=== PATIENT | male | born 1965 | race Caucasian/White ===

== ENCOUNTER 2017-03-14 21:09 | Inpatient (IN) ==
--- NOTE | 2017-03-14 21:45 | Diag Imaging Result Doc PS360 ---
EXAM: CHEST-2 VIEWS HISTORY: dyspnea TECHNIQUE: PA and lateral COMMENT: There are opacities in the medial portion of the right upper lobe and the left lower lobe consistent with pneumonia. There are no previous studies available for comparison. The heart size is the upper limits of normal. There is probable COPD. IMPRESSION: COPD with bronchopneumonia as described. Advise follow-up until clear. Electronically signed by Keenan Gauthier 03/14/2017 9:42 PM
[2017-03-14] MEDS ORDERED: ROCEPHIN 1 GM/NS 1 GM/50 ML IVPB IV ONE (21:50)
[2017-03-14] MEDS ORDERED: DUONEB (A & A) INH ONE (21:57)
[2017-03-14] MEDS ORDERED: SOLU-MEDROL IV ONE (21:58)
[2017-03-14 22:00] LABS: MANUAL DIFF NEEDED? NO
[2017-03-14 22:02] LABS: BASO% 0.2 % (0.0-0.8); EOS# 0.15 X1000 (0.0-0.7); EOS% 1.1 % (0.0-10.0); HEMOGLOBIN 13.4 g/dL (14.0-18.0); IMM GRAN# 0.03 X1000 (0.0-0.04); IMM GRAN% 0.2 % (0.0-0.5); LYMPH% 12.1 % (20.5-51.1); MCHC 32.7 g/dL (33-37); MCV 104.1 FL (81-99); MONO# 1.57 X1000 (0.11-0.59); MONO% 11.9 % (1.7-9.3); NEUT% 74.5 % (42.2-75.2); PLT 366 X1000 (130-400); RBC 3.94 XMIL (4.7-6.1)
[2017-03-14 22:19] LABS: INR 0.98; PROTIME 10.3 Seconds (9.2-11.7); PTT 26.2 Seconds (22.0-36.0)
[2017-03-14 22:31] LABS: AGAP 13; ALBUMIN 3.8 g/dL (3.5-5.0); ALKALINE PHOSPHATASE 257 U/L (32-122); BUN 15 mg/dL (8-22); CALCIUM 9.1 mg/dL (8.8-10.2); CHLORIDE 98 mmol/L (98-107); CK PROFILE 53 U/L (24-204); COSMO 280; GOT 136 U/L (10-34); GPT 91 U/L (10-44); MAGNESIUM 1.7 mg/dL (1.5-2.7); POTASSIUM 4.8 mmol/L (3.5-5.1); SODIUM 139 mmol/L (136-145); TCO2 28 mmol/L (25-35); TOTAL BILIRUBIN 0.54 mg/dL (0.20-1.00); TOTAL PROTEIN 7.5 g/dL (6.3-8.3)
[2017-03-14] MEDS ORDERED: NS 500 ML IV ONE (22:45)
[2017-03-14] MEDS ORDERED: NS 1,000 ML IV ONE (22:45)
--- NOTE | 2017-03-14 22:52 | PROVIDER DOCUMENTATION ---
This chart was entered by Mor Gonzalez Scribe, acting as scribe for Silviano Garvey MD. HPI-Respiratory General - General Chief Complaint: Shortness of Breath Stated Complaint: COUGHING UP BLOOD Time Seen by Provider: 03/14/17 21:49 Source: patient Allergies/Adverse Reactions: Patient Allergies Allergy/AdvReac Type Severity Reaction Status Date / Time No Known Allergies Allergy Verified 03/14/17 21:33 Home Medications: Home Medication List Medication Instructions Recorded Confirmed Last Taken Type Unobtainable [Home Meds 03/14/17 03/14/17 Unknown History Unobtainable] - History of Present Illness-Resp Nature of Presenting Problem: Pt is a 51 yom who presents to ER from sn[facility] with CC of shortness of breath. Pt states that he has felt sick for the past 2 weeks and complains of fever/chills , shortness of breath, and a dark green productive cough. Quality of Pain: reports: other (shortness of breath) Severity in ED: reports: moderate Onset/Duration: reports: other (2 weeks) Timing: reports: still present Cough Quality/Degree: reports: moderate, productive cough, sputum, blood streaked sputum Associated Symptoms: reports: cough, fever/chills, muscle/bodyaches, shortness of breath, short of breath, wheezing. denies: chest pain/soreness, headache, heart racing, hyperventilating, lightheadedness, sinus pain, sore throat, sweaty Similar Symptoms Previously?: Yes Recently seen or treated by another doctor?: No Review of Systems - Adult - REVIEW OF SYSTEMS - ADULT Constitutional: reports: chills, fever, fatique. denies: night sweats, weight gain, weight loss Eyes: reports: no symptoms reported Ears, Nose, Mouth & Throat: reports: no symptoms reported Cardiovascular: denies: chest pain, edema, irregular heart rate, palpitations, poor circulation, syncope Respiratory: reports: chronic cough, cough, dyspnea on exertion, excessive sputum production, hemoptysis, shortness of breath, wheezing. denies: pleurisy Gastrointestinal: reports: abdominal pain, nausea. denies: hematemesis, constipation, diarrhea, difficulty swallowing, frequent heartburn, poor appetite , rectal bleeding, vomiting Genitourinary: reports: no symptoms reported Musculoskeletal: reports: no symptoms reported Integumentary: reports: no symptoms reported Neurological: reports: no symptoms reported Psychiatric: reports: no symptoms reported Endocrine: reports: no symptoms reported Hematologic/Lymphatic: reports: no symptoms reported Allergic/Immunologic: reports: no symptoms reported All Other Systems: Reviewed and Negative Past History - Adult - PAST MEDICAL HISTORY-ADULT Review of Records: reports: Nursing Assessment Review, Medications Reviewed - IMMUNIZATION STATUS Childhood Immunizations: See Nurse Assessment Flu Vaccine: See Nurse Assessment Physical Exam-General - PHYSICAL EXAM-ADULT Initial Vital Signs Reviewed: Yes - CONSTITUTIONAL General Appearance: appears well, alert, mild distress Progress - PLAN OF CARE/RESULTS Progress/Plan/Lab Results: Vital Signs - 8 hr 03/14/17 21:13 03/14/17 22:00 Temperature 98.2 F Pulse Rate 145 H 80 Respiratory Rate 24 16 Blood Pressure 147/89 O2 Sat by Pulse Oximetry 100 Laboratory Results - last 24 hr 03/14/17 03/14/17 03/14/17 21:44 21:44 21:44 WBC 13.24 H RBC 3.94 L Hgb 13.4 L Hct 41.0 L MCV 104.1 H MCH 34.0 H MCHC 32.7 L RDW Std Deviation 12.9 Plt Count 366 MPV 12.0 H Immature Gran % (Auto) 0.2 Neut % (Auto) 74.5 Lymph % (Auto) 12.1 L [place] % (Auto) 11.9 H Eos % (Auto) 1.1 Baso % (Auto) 0.2 Immature Gran # (Auto) 0.03 Neut # (Auto) 9.86 H Lymph # (Auto) 1.60 [place] # (Auto) 1.57 H Eos # (Auto) 0.15 Baso # (Auto) 0.03 PT INR PTT (Actin FS) Sodium 139 Potassium 4.8 Chloride 98 Carbon Dioxide 28 Anion Gap 13 BUN 15 Creatinine 1.0 Estimated GFR/1.73 m2 > 60 BUN/Creatinine Ratio 15 Glucose 133 H Calculated Osmolality 280 Calcium 9.1 Magnesium 1.7 Total Bilirubin 0.54 AST 136 H ALT 91 H Alkaline Phosphatase 257 H Creatine Kinase 53 Troponin T [place]ix-[place]ytjcczsekr Pept 24250 H Total Protein 7.5 Albumin 3.8 Globulin 3.7 Albumin/Globulin Ratio 1.0 Plasma Lactate 03/14/17 03/14/17 03/14/17 21:44 21:44 21:44 WBC RBC Hgb Hct MCV MCH MCHC RDW Std Deviation Plt Count MPV Immature Gran % (Auto) Neut % (Auto) Lymph % (Auto) [place] % (Auto) Eos % (Auto) Baso % (Auto) Immature Gran # (Auto) Neut # (Auto) Lymph # (Auto) [place] # (Auto) Eos # (Auto) Baso # (Auto) PT 10.3 INR 0.98 PTT (Actin FS) 26.2 Sodium Potassium Chloride Carbon Dioxide Anion Gap BUN Creatinine Estimated GFR/1.73 m2 BUN/Creatinine Ratio Glucose Calculated Osmolality Calcium Magnesium Total Bilirubin AST ALT Alkaline Phosphatase Creatine Kinase Troponin T < 0.010 Cbn-T-Erwnvokuyxv Pept Total Protein Albumin Globulin Albumin/Globulin Ratio Plasma Lactate 2.5 H Orders Category Date Time Status Cardiac Monitoring DIRECTED Care 03/14/17 21:24 Active IV Insertion ORDERED Care 03/14/17 22:44 Completed Intake and Output-Strict ORDERED Care 03/14/17 22:45 Active Notify MD of + Sepsis Screen NOW Care 03/14/17 22:44 Active Notify MD/PA/CHAPIN for exam NOW Care 03/14/17 22:45 Active Repeat Vital Signs .Heart Rate Care 03/14/17 22:45 Active Repeat Vital Signs .Oxygen Saturation Care 03/14/17 22:45 Active Repeat Vital Signs .Respiratory Rate Care 03/14/17 22:45 Active Repeat Vital Signs .Temp Care 03/14/17 22:45 Active Saline Loc NOW Care 03/14/17 21:24 Active CHEST-2 VIEWS [RAD] Stat Exams 03/14/17 21:24 Completed BLOOD CULTURE [BLDCUL] Stat Lab 03/14/17 21:44 Results CBC WITH ELECTRONIC DIFF [HEME] Stat Lab 03/14/17 21:44 Completed CK PROFILE [SP CHEM] Stat Lab 03/14/17 21:44 Completed COMPREHENSIVE METABOLIC PANEL [CHEM] Stat Lab 03/14/17 21:44 Completed LACTATE, PLASMA [CHEM] Stat Lab 03/14/17 21:44 Completed LACTATE, PLASMA [CHEM] Timed Lab 03/14/17 22:45 Ordered MAGNESIUM [CHEM] Stat Lab 03/14/17 21:44 Completed PRO B-NATRIURETIC PEPTIDE Stat Lab 03/14/17 21:44 Completed PROTIME WITH INR [COAG] Stat Lab 03/14/17 21:44 Completed PTT [COAG] Stat Lab 03/14/17 21:44 Completed TROPONIN T Stat Lab 03/14/17 21:44 Completed 0.9% Sodium Chloride Inj [Ns] 1,000 ml Med 03/14/17 22:45 Discontinued IV As Directed 0.9% Sodium Chloride Inj [Ns] 500 ml Med 03/14/17 22:45 Active IV 999 mls/hr Albuterol 2.5MG/Ipratrop 0.5MG [Duoneb (A & A)] Med 03/14/17 21:57 Discontinued 3 ml INH NOW ONE CefTRIAXONE 1 GM/NS [Rocephin 1 gm/Ns] Med 03/14/17 21:50 Discontinued 1 gm in 50 ml IV NOW Methylprednisolone Sod Succ [Solu-Medrol] Med 03/14/17 21:58 Discontinued 125 mg IV NOW ONE Aerosol Treatments Routine Oth 03/14/17 21:57 Completed Aerosol Treatments Stat Oth 03/14/17 21:57 Completed Oxygen Device Stat Oth 03/14/17 22:44 Active Transfer/Admit Order [TRANSFER] Routine Transfer 03/14/17 22:50 Ordered Result Diagrams: 03/14/17 21:44 03/14/17 21:44 - XRAY 1 XRAY: Bilateral XRAY Study: Chest Impression: See EMR Report XRAY Interpretation: Right upper lobe infiltrate, left lower lobe infiltrate - - CONSULTS/PCP/HOSPITALIST Notification #1 *Consult/PCP/Hospitalist*: Dr. Elizabeth, hospitalist Time Discussed: 22:45 Consult Disposition: Admit Departure - Departure Time of Disposition Decision: 21:50 DIAGNOSIS: Lactic acidosis PNA (pneumonia) Qualifiers: Pneumonia type: due to unspecified organism Laterality: bilateral Lung location : lower lobe of lung Qualified Code(s): J18.9 - Pneumonia, unspecified organism Disposition: ADMITTED INPATIENT 09 Certified Medical Emergency: Emergent Condition: Stable Referrals and Follow-Ups: None,PCP [Primary Care Provider] - - Critical Care Note This patient required my direct & personal management of CC.: No This chart was documented by the indicated scribe, (Mor Gonzalez Scribe) and accurately reflects the services I performed and decisions made by me, Silviano Garvey MD, as attested by the provider's signature.
[2017-03-14] MEDS: ZITHROMAX 500 MG/NS 500 MG/250 ML IVPB IV SCH (23:47)
[2017-03-15] MEDS ORDERED: DUONEB (A & A) INH SCH (00:39)
[2017-03-15] MEDS ORDERED: TYLENOL PO PRN (00:39)
[2017-03-15] MEDS ORDERED: NS 1,000 ML IV ONE (00:39)
[2017-03-15] MEDS ORDERED: SALINE LOCK IV FLUID XX ONE (01:09)
[2017-03-15] MEDS ORDERED: NS NEB INH SCH (01:15)
[2017-03-15] MEDS: NORCO-5 PO PRN ×2 (02:24→20:43)
[2017-03-15] MEDS: XOPENEX NEB INH SCH ×6 (03:11→23:24)
[2017-03-15] MEDS: ATROVENT NEB INH SCH ×6 (03:11→23:24)
[2017-03-15 04:29] LABS: URINE CULTURE NEEDED? NO; URINE MICRO REVIEW NEEDED? NO; URINE SOURCE CLEAN CATCH
[2017-03-15 04:39] LABS: BILIRUBIN URINE NEGATIVE (NEGATIVE); BLOOD URINE NEGATIVE (NEGATIVE); COLOR YELLOW; GLUCOSE URINE NEGATIVE (NEGATIVE); LEUKOCYTES URINE NEGATIVE (NEGATIVE); NITRITE URINE NEGATIVE (NEGATIVE); PH URINE 6.5; PROTEIN URINE TRACE mg/dL (NEGATIVE); SP GRAVITY URINE 1.022; TURBIDITY URINE CLEAR (CLEAR); UROBILINOGEN URINE 4 mg/dL (NORMAL)
[2017-03-15 04:40] LABS: UR EPITHELIAL CELLS <10 /HPF (<10); URINE BACTERIA NEGATIVE /HPF; URINE RBC <10 /HPF (<10); URINE WBC <10 /HPF (<10)
[2017-03-15 04:54] LABS: UR AMPHETAMINES QUAL NONE DETECTED (NONE DETECT); UR BARBITUATES QUAL NONE DETECTED (NONE DETECT); UR BENZODIAZEPIN QUAL NONE DETECTED (NONE DETECT); UR CANNABINOIDS QUAL NONE DETECTED (NONE DETECT); UR COCAINE QUAL NONE DETECTED (NONE DETECT); UR METHADONE QUAL NONE DETECTED (NONE DETECT); UR OPIATES QUAL NONE DETECTED (NONE DETECT); UR OXYCODONE QUAL NONE DETECTED (NONE DETECT); UR PCP QUAL NONE DETECTED (NONE DETECT)
[2017-03-15 05:50] LABS: BASO% 0.1 % (0.0-0.8); HEMATOCRIT 35.5 % (42.0-52.0); HEMOGLOBIN 11.6 g/dL (14.0-18.0); LYMPH# 0.46 X1000 (1.2-3.4); LYMPH% 5.6 % (20.5-51.1); MANUAL DIFF NEEDED? YES; MCH 33.9 PG (27-31); MCHC 32.7 g/dL (33-37); MCV 103.8 FL (81-99); MONO# 0.17 X1000 (0.11-0.59); MONO% 2.1 % (1.7-9.3); MPV 12.2 FL (7.4-10.4); NEUT% 92.2 % (42.2-75.2); PLT 242 X1000 (130-400); RBC 3.42 XMIL (4.7-6.1)
[2017-03-15 06:19] LABS: AGAP 14; BUN 14 mg/dL (8-22); CALCIUM 8.1 mg/dL (8.8-10.2); CHLORIDE 103 mmol/L (98-107); CK PROFILE 42 U/L (24-204); COSMO 281; MAGNESIUM 1.7 mg/dL (1.5-2.7); POTASSIUM 4.5 mmol/L (3.5-5.1); SODIUM 139 mmol/L (136-145); TCO2 22 mmol/L (25-35)
[2017-03-15] MEDS: COREG PO SCH ×2 (08:18→20:43)
[2017-03-15] MEDS: ASPIRIN EC PO SCH (08:18)
[2017-03-15] MEDS ORDERED: PRINIVIL PO SCH (09:00)
[2017-03-15] MEDS ORDERED: LASIX PO SCH (09:00)
[2017-03-15] MEDS ORDERED: COREG PO SCH (09:00)
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
--- NOTE | 2017-03-15 12:32 | CONSULTATION ---
DATE OF CONSULTATION: 03/15/2017 INDICATION: History of congestive heart failure, recent development or shortness of breath and productive cough. HISTORY OF PRESENT ILLNESS: Mr. Kenney is a 51-year-old white male who presented to the ER in the custody of [facility] who he has been a resident at their facility for the last 6 days or so. He has had onset of shortness of breath and cough for the last 2 weeks. He thinks he has had subjective fevers, but he has not been checking that at home. He has not any overt chest pain. Denies any overt orthopnea. He reports compliance with his medications. [facility] as well as Dr. Yue connelly in [place]. He has a history of a nonischemic cardiomyopathy. PAST MEDICAL HISTORY: 1. Significant for nonischemic cardiomyopathy. Last echocardiogram was performed in October 2016 demonstrating an EF of less than 25%. Mild MR was noted. He last heart catheterization was performed in May 2015 demonstrating no significant coronary artery disease identified at that time. 2. History of stroke with hospitalization in October 2016 at [facility]. 3. History of chronic alcohol abuse. 4. Former tobacco use quitting in 2015 but continues to use smokeless tobacco. 5. Minimal carotid artery disease. SOCIAL HISTORY: Obviously he is incarcerated. He has quit smoking around 5-6 months ago. Continues to apparently use alcohol drinking upwards to a pint of vodka daily. FAMILY HISTORY: Significant for hypertension. REVIEW OF SYSTEMS: Ten system review of systems is negative except for those mentioned in HPI. PHYSICAL EXAMINATION: He is afebrile. Heart rate is in the 90s to 110s. Blood pressure is 94/64.General: No acute distress. HEENT: Oropharynx is moist. Poor dentition. Eye examination shows pink conjunctivae, white sclerae. Neck: Examination shows no obvious thyromegaly or thyroid tenderness. Cardiovascular: He is in a regular rate and rhythm. He has no obvious murmurs. He has no S3. He has no lower extremity edema. His JVP is less than 8 cm with no carotid bruits. Chest: Exam is notable for having some minimal rales in the left base. No increased work of breathing. Abdomen: Soft, nontender, nondistended. He has no obvious organomegaly. Skin Exam: Warm and dry throughout without any rashes. Neurological: He seems to be moving all extremities well. Seems nonfocal. Psychiatric: Alert and oriented, pleasant. Normal mood and affect. PERTINENT DATA: Suggestive of COPD with bronchopneumonia in the left lower lobe and right upper lobe. His laboratory data demonstrates white count 8.1. His hematocrit is 35.5, platelet count 242,000. His sodium is 139, potassium 4.5. His BUN is 14, creatinine 0.9. Cardiac enzymes are negative. ProBNP was [address]397 yesterday. ASSESSMENT: 1. Pneumonia. 2. History of nonischemic cardiomyopathy. PLAN: I will add in digoxin considering his heart rate elevation. He does not have much room to titrate medications considering his blood pressure that he presently has. He is on Lasix 40 mg p.o. daily which I would continue presently. cc: Stephon Bush MD
[2017-03-15] MEDS ORDERED: ROCEPHIN 1 GM/NS 1 GM/50 ML IVPB IV SCH (22:00)
[2017-03-15] MEDS: ZITHROMAX 500 MG/NS 500 MG/250 ML IVPB IV SCH (22:30)
[2017-03-15] MEDS ORDERED: VANCOMYCIN 1 GM/NS 1 GM/250 ML IVPB IV ONE (23:15)
[2017-03-16] MEDS: ZOFRAN IV PRN ×2 (00:33→05:42)
[2017-03-16 00:39] LABS: ALLEN TEST YES; BE -16.1 mmoll (-3.0-3.0); BLOOD TYPE ARTERIAL; DRAW SITE R RADIAL; METHB 0.7 % (0.0-1.5); O2(CT) 17.6 mL/dL (15.0-23.0); PCO2(98.6) 32 mmHg (35-45); PO2(98.6) 120 mmHg (60-100); SAMPLE BLOOD; SAO2 99.6 % (95.0-100.0); THB 12.7 g/dL (11.5-17.4)
[2017-03-16 00:40] LABS: MODALITY CANNULA; pH(98.6) 7.16 (7.35-7.45)
[2017-03-16] MEDS ORDERED: NS 500 ML IV ONE (01:06)
[2017-03-16 01:09] LABS: ALBUMIN 3.3 g/dL (3.5-5.0); CALCIUM 9.2 mg/dL (8.8-10.2); POTASSIUM 5.2 mmol/L (3.5-5.1); TOTAL BILIRUBIN 0.18 mg/dL (0.20-1.00); TOTAL PROTEIN 7.3 g/dL (6.3-8.3)
[2017-03-16] MEDS ORDERED: VANCOMYCIN IV PER PHARMACY MISC SCH (01:15)
[2017-03-16] MEDS: NEO-SYNEPHRINE 50 MG in NS 250 ML IV SCH ×2 (02:37→15:01)
[2017-03-16] MEDS: XOPENEX NEB INH SCH ×6 (03:40→23:10)
[2017-03-16] MEDS: ATROVENT NEB INH SCH ×6 (03:41→23:10)
[2017-03-16] MEDS: NORCO-5 PO PRN ×2 (03:58→10:12)
[2017-03-16] MEDS ORDERED: VANCOMYCIN 600 MG in NS 250 ML IV ONE (04:00)
[2017-03-16 04:45] LABS: ALLEN TEST YES; BE -0.9 mmoll (-3.0-3.0); BLOOD TYPE ARTERIAL; DRAW SITE R RADIAL; METHB 0.9 % (0.0-1.5); O2(CT) 19.5 mL/dL (15.0-23.0); PO2(98.6) 116 mmHg (60-100); SAMPLE BLOOD; SAO2 97.7 % (95.0-100.0); THB 14.4 g/dL (11.5-17.4); pH(98.6) 7.31 (7.35-7.45)
[2017-03-16 04:46] LABS: MODALITY CANNULA; PCO2(98.6) 52 mmHg (35-45)
[2017-03-16 08:04] LABS: BASO% 0.1 % (0.0-0.8); EOS# 0.03 X1000 (0.0-0.7); EOS% 0.2 % (0.0-10.0); HEMATOCRIT 37.1 % (42.0-52.0); HEMOGLOBIN 12.1 g/dL (14.0-18.0); IMM GRAN# 0.02 X1000 (0.0-0.04); IMM GRAN% 0.1 % (0.0-0.5); LYMPH# 1.06 X1000 (1.2-3.4); LYMPH% 7.4 % (20.5-51.1); MANUAL DIFF NEEDED? YES; MCHC 32.6 g/dL (33-37); MCV 104.2 FL (81-99); MONO# 1.01 X1000 (0.11-0.59); MONO% 7.1 % (1.7-9.3); MPV 12.1 FL (7.4-10.4); NEUT% 85.1 % (42.2-75.2); PLT 320 X1000 (130-400); RBC 3.56 XMIL (4.7-6.1)
[2017-03-16 08:07] LABS: CALCIUM 8.3 mg/dL (8.8-10.2); MAGNESIUM 1.8 mg/dL (1.5-2.7); POTASSIUM 4.9 mmol/L (3.5-5.1)
[2017-03-16 08:15] LABS: ALKALINE PHOSPHATASE 261 U/L (32-122); DIRECT BILIRUBIN < 0.10 mg/dL (0.00-0.20); GOT 103 U/L (10-34); GPT 84 U/L (10-44); TOTAL BILIRUBIN 0.29 mg/dL (0.20-1.00); TOTAL PROTEIN 6.5 g/dL (6.3-8.3)
[2017-03-16 08:16] LABS: URINE MICRO REVIEW NEEDED? NO; URINE SOURCE CLEAN CATCH
[2017-03-16] MEDS: ZOSYN 3.375 GM/NS 3.375 GM/50 ML IVPB IV SCH ×3 (08:18→17:49)
[2017-03-16] MEDS: ASPIRIN EC PO SCH (08:18)
[2017-03-16] MEDS: COREG PO SCH ×2 (08:18→21:51)
[2017-03-16 08:25] LABS: BILIRUBIN URINE NEGATIVE (NEGATIVE); BLOOD URINE NEGATIVE (NEGATIVE); COLOR YELLOW; GLUCOSE URINE NEGATIVE (NEGATIVE); LEUKOCYTES URINE NEGATIVE (NEGATIVE); NITRITE URINE NEGATIVE (NEGATIVE); PROTEIN URINE 50 mg/dL (NEGATIVE); SP GRAVITY URINE 1.025; TURBIDITY URINE CLEAR (CLEAR); UROBILINOGEN URINE NORMAL (NORMAL)
--- NOTE | 2017-03-16 08:26 | PROGRESS NOTE ---
DATE: 03/16/2017 DATE AND TIME: March 16, 2017 at 0030. Mr. Kenney was admitted on 03/15/2017 at approximately at 0039 for a pneumonia and CHF. At approximately 0013 this morning on 03/16/17 the patient pressed his call button, asking for the nurse, stating that he did not feel good. He was complaining of chest pain. He was also diaphoretic at this time. Temperature was 97.5 degrees, heart rate 96, respirations 28, and blood pressure was 145/44 with a MAP of 70, and oxygen saturation of 100% on nasal cannula at 3 L. During this time, the patient did become sick and vomited. The nurses did call a critical patient clerical assistant team. Approximately 1 minute after this was called the patient become unresponsive and was pulseless. Telemetry did report that during this time the patient did jeffrey down prior to the code. CPR was started and ACLS protocol was implemented. Although, during the initial code response the patient's IV did get pulled out. Upon initial rhythm check the patient did have return of pulse, though the patient did not maintain pulse long. He did jeffrey down again and become pulseless. CPR was resumed. During this time patient was being bagged per respiratory with a bag-valve mask. On next rhythm check the patient did have a pulse present at a rate of 103. He actually sat up in the bed and was initially confused, asking what was going on. He did report that he was short of breath and was nauseated and felt as though he was going to get sick. New IV access was obtained with 20g left AC. We attempted to place a non- rebreather on the patient, though he would not tolerate this. Nasal cannula placed at 4 L. We did give the patient some Zofran and ordered stat labs of CMP, magnesium, phosphorus, CK profile, troponin, and ABGs. The patient was transferred to the ICU. After speaking with the nurses and the patient, the patient did report to the nurse that upon his 1st administration of the Zithromax in the ER on admission that he stated that he felt bad while being given this medication IV. Just prior to the patient's code tonight he received Zithromax as well. This episode could possibly be related to an allergic reaction to his Zithromax. At this time we have adjusted his antibiotics. He has also been placed on vancomycin secondary to some gram-positive blood cultures. The patient's blood pressure after his code was 81/63. He did receive a 500 mL normal saline bolus over 1 hour, though his blood pressure remained borderline and we did place a Lalit-Synephrine drip and the patient's blood pressure has improved. His last vitals at this time, heart rate of 103, respirations 18, blood pressure 115/65, and he is maintaining oxygen saturation of 100% on nasal cannula at 2 L. Further orders and recommendations pending hospital course, diagnostic studies, and physician evaluation. CRITICAL CARE TIME: Critical care time with this patient was approximately 45 minutes. Seen and examined pt with FUNCTIONAL DIRECTOR and discussed plan of care. Dictated by CHAPIN Osorio for Brady Murillo MD cc: Brady Murillo MD MTDD
[2017-03-16 08:27] LABS: UR EPITHELIAL CELLS <10 /HPF (<10); URINE BACTERIA NEGATIVE /HPF; URINE RBC <10 /HPF (<10); URINE WBC <10 /HPF (<10)
--- NOTE | 2017-03-16 08:57 | Diag Imaging Result Doc PS360 ---
EXAM: CHEST-PORTABLE HISTORY: pneumonia TECHNIQUE: Portable upright AP at 0820 COMMENT: There is worsened opacification in the retrocardiac portion of the left lower lobe compared to 03/14/2017. The inspiration is generally suboptimal. There is apparent pulmonary edema or pneumonia in the lateral right lower lobe as well. IMPRESSION: Atelectasis and/or pneumonia left lower lobe and possibly in the right lower lobe. The possibility of pulmonary edema cannot be excluded. Electronically signed by Keenan Gauthier 03/16/2017 8:55 AM
[2017-03-16] MEDS ORDERED: DOXYCYCLINE PO SCH (09:00)
--- NOTE | 2017-03-16 10:44 | Diag Imaging Result Doc PS360 ---
EXAM: US RENAL 2 (RETROPER) COMPLETE HISTORY: JOANNE TECHNIQUE: Transabdominal COMMENT: The right kidney is 10.7 x 4.7 x 5 cm the left is 10.2 x 4.1 x 5 cm. There is some perinephric fluid over the upper pole of the right kidney. There is no evidence of hydronephrosis or mass. The kidneys are inhomogeneous in echogenicity. The urinary bladder is unremarkable. IMPRESSION: No evidence of obstructive uropathy. Possibility of medical renal disease cannot be excluded. Perinephric fluid on the right. Electronically signed by Keenan Gauthire 03/16/2017 10:42 AM
[2017-03-16 10:56] LABS: UR CREAT RANDOM 129.2 mg/dL (14-26); UR PROT RANDOM 63.4 mg/dL
[2017-03-16] MEDS ORDERED: LASIX IV ONE (12:33)
[2017-03-16] MEDS ORDERED: ALBUMIN 25% IV ONE (12:34)
--- NOTE | 2017-03-16 12:55 | PROGRESS NOTE ---
DATE: 03/16/2017 SUBJECTIVE: Mr. Kenney had an episode last night of apparent loss of pulse and bradycardia. I do not have any rhythm strips to relate to that event. There is no telemetry scanned in for the patient. He was transferred down to the ICU. Was briefly on pressors. PHYSICAL EXAMINATION: Vital signs: He is afebrile. His heart rate presently is in the 90s to low 100s, in sinus tach/ his blood pressure is 109/84. General: He is in no acute distress. Cardiovascular: He is in a regular rhythm. He is mildly tachycardic. No murmurs. His JVP is elevated to around 10 cm of water. Chest: Exam has reduced breath sounds in the bilateral bases. He is coughing significantly with deep inspiration. Abdomen: Soft, nontender, nondistended. No obvious organomegaly. PERTINENT DATA: His chest x-ray suggests atelectasis and/or pneumonia in the left lower lobe and possibly the right lower lobe. Possibility of pulmonary edema is also present. His laboratory data shows white count of 14.2, hematocrit 37.1, platelet count is 320,000. His most recent chemistry shows a sodium 139, potassium 4.5. His BUN is 14, creatinine 0.9. His albumin level is 3. His proBNP is significantly more elevated; it is up to 16,788 from 13,000. ASSESSMENT: 1. Systolic heart failure. 2. Pneumonia. PLAN: I will diurese the patient with 20 mg IV Lasix. Considering his albumin of 3 I will also give him a little bit of IV albumin to try to assist with this. The patient has an elevated proBNP that seems out of proportion to any sort of renal dysfunction. He has an elevated JVP and his chest x-ray has a suggestion of a possible infiltrate. We will try to diurese him as he appears to be having issues with heart failure. cc: Stephon Bush MD
--- NOTE | 2017-03-16 13:02 | Diag Imaging Result Doc PS360 ---
EXAM: THORAX/ABDOMEN/PELVIS W/O CONT HISTORY: abdominal pain/pneumonia TECHNIQUE: CT of the chest without contrast, and CT urogram without contrast, with dose reduction (clarity.) COMMENT: There is no evidence of acute bony disease. There are no previous studies. There are bilateral pleural effusions. There is a 2 cm precarinal node. There is some consolidation in the inferior portions of the left lower lobe. Patchy and coarse nodular opacities are present in the right lower lobe. There is COPD with a particularly large bulla in the right lower lobe. There is apical scarring in both upper lobes. CT urogram without contrast: There is a small amount of ascites. The urinary bladder is slightly distended. The appendix is not enlarged. There is stool throughout the colon. No definite gallstones are present. There is some motion artifact. There is no evidence of hydronephrosis or nephrolithiasis. There is generalized subcutaneous edema. There is been internal fixation of the left femur with intramedullary fabi. No acute bony abnormalities are present. IMPRESSION: Pleural effusions, ascites, and anasarca. Left lower and probable right lower lobe pneumonia. Mediastinal adenopathy. COPD. Electronically signed by Keenan Gauthier 03/16/2017 1:00 PM
[2017-03-16] MEDS: LOVENOX SUBQ SCH (13:18)
[2017-03-16] MEDS: SODIUM CHLORIDE 0.9% INJ SCH ×2 (13:18→21:37)
[2017-03-16] MEDS: PROTONIX IV SCH ×2 (13:18→21:37)
--- NOTE | 2017-03-16 16:15 | PROGRESS NOTE ---
DATE: 03/16/2017 SUBJECTIVE: The events from overnight were noted. The patient is currently awake alert and oriented x3 and is currently on an Lalit drip. He complains of a tenderness on palpation on his chest. OBJECTIVE: Vital Signs: Temperature 97.8 degrees, blood pressure 109/84, heart rate 114, respirations 18, O2 saturations 98% on 2 L nasal cannula. General: This is an elderly male, lying in bed. Psych: In no acute distress. Head: Normocephalic. Atraumatic. Heart: S1, S2. Normal. Tachycardic. Lungs: Equal air entry bilaterally. No crackles. No rales. Abdomen: Positive bowel sounds. Soft, nontender, nondistended. Extremities: No edema. No cyanosis. No calf tenderness. Neurologic: The patient is alert and oriented x3. No focal neurologic deficits noted. LABS: Chem: White blood cell count 14, hemoglobin 12, hematocrit 37, platelets 320,000. Chem: Sodium 143, potassium 5.2, BUN 27, creatinine 1.3, glucose 109, magnesium 1.8, calcium 8.3. AST 103, ALT 84, alkaline phosphatase 261. ProBNP: 70425. IMAGING STUDIES: Chest x-ray: Shows bilateral lobe pneumonia. ASSESSMENT AND PLAN: 1. Status post cardiac arrest. The patient is awake, alert, and oriented x3. She does complain of a left chest wall tenderness from the chest compressions. We will order a 2-dimensional echocardiogram. We will await further recommendations from the document processing specialist. Of note, the cardiac event occurred within 30 minutes of the patient receiving IV azithromycin. This medication has since been discontinued and listed as an allergy for the patient. 2. Bilateral lobe pneumonia. Continue on vancomycin. We will add Zosyn. Continue with bronchodilator therapy and incentive spirometry. 3. Hypotension. We will attempt to wean the patient off of the Lalit-Synephrine. 4. Acute kidney injury. This may be secondary to hypoperfusion during the cardiac arrest. The patient's creatinine has improved since last night. We will continue to monitor the patient's urine output closely. A renal ultrasound was done that revealed fluid on the right kidney. No evidence of obstruction seen. 5. Leukocytosis. Continue on the current IV antibiotic regimen. 6. GI prophylaxis. Continue on IV protonix 7. DVT prophylaxis. Continue on lovenox. cc: Jenn Barker MD MTDD
[2017-03-16] MEDS: NORCO-7.5 PO PRN ×2 (16:17→21:51)
--- NOTE | 2017-03-16 16:41 | ECHO REPORT ---
ORDER DATE: 03/16/2017 INDICATION: Cardiomyopathy. Cardiac arrest. FINDINGS: 1. Right atrium is moderately enlarged at 5.3 cm. 2. Mild tricuspid regurgitation. RV systolic pressure of 54. 3. There is enlargement of the right ventricle with moderate reduction in RV systolic function. 4. Mild pulmonic insufficiency. 5. Mild left atrial enlargement at 4.2 cm. 6. No mitral valve prolapse. Mild mitral regurgitation. 7. Dilatation of the left ventricle with an end-diastolic dimension of 6.2 cm. Normal wall thicknesses with posterior and interventricular septal wall thickness 1.0 cm each. Severe reduction in LV systolic function with an estimated EF in the 10-15% range and significant global hypokinesis. I do not see any evidence of left ventricular thrombus. 8. Aortic valve opens well and appears trileaflet. No evidence of stenosis or insufficiency. 9. Aorta appears normal in visualized segments. 10. No pericardial effusion seen. cc: MD Jenn Cantu MD
[2017-03-16] MEDS: ZYVOX PO SCH (21:36)
[2017-03-17] MEDS: ZYVOX PO SCH ×3 (01:34→20:15)
[2017-03-17] MEDS: ZOSYN 3.375 GM/NS 3.375 GM/50 ML IVPB IV SCH ×6 (02:01→23:46)
[2017-03-17] MEDS: ATROVENT NEB INH SCH ×6 (03:40→23:25)
[2017-03-17] MEDS: XOPENEX NEB INH SCH ×6 (03:40→23:25)
[2017-03-17] MEDS ORDERED: VANCOMYCIN 1 GM/NS 1 GM/250 ML IVPB IV SCH (04:00)
[2017-03-17] MEDS: NORCO-7.5 PO PRN ×3 (04:00→19:42)
--- NOTE | 2017-03-17 04:04 | CONSULTATION ---
DATE OF CONSULTATION: 03/16/2017 CONCLUSION: Patient is admitted the hospital with a bilateral pneumonia and associated pleural effusion. He has an elevated creatinine. Also, the patient's white count is increasing. RECOMMENDATIONS: I agree with treating the patient with Zosyn. Because the patient has an elevated creatinine, I have substituted Zyvox for vancomycin. Also, Zyvox hopefully will be able to bring down the patient's rising white blood cell count. DISCUSSION: The patient says he has a 2-week history of coughing a yellow-greenish sputum. He also has pleuritic chest pain and an intermittent fever. LABORATORY STUDIES: The patient's studies thus far: A CT scan of the chest, abdomen, and pelvis shows bilateral basilar pneumonia, bilateral pleural effusions, and anasarca. Patient's CBC shows a white count of 14,230, hemoglobin 12.1, and platelet count 320,000. Blood gases show a pH of 7.3, a PO2 of 116, a pCO2 of 52. Creatinine is 1.6. GFR is 45. The patient's alkaline phosphatase is elevated at 257. Patient's sputum Gram stain shows white cells and Gram positive cocci. RECOMMENDATIONS: I agree with treating the patient with Zosyn. PAST MEDICAL HISTORY AND REVIEW OF SYSTEMS: Eyes and Ears: He denies difficulty hearing or seeing. Neck: No stiffness. Respiratory: See present illness. Cardiovascular: Patient is having pleuritic chest pain, but no pain that sounds cardiac in origin. The patient is not having any palpitations. PHYSICAL EXAMINATION: Thorax: There is increased AP diameter of the chest. Lungs: Clear to auscultation. Cardiovascular: Heart rate is regular and rapid. Abdomen: Soft and nontender. HEENT: The patient is missing many of his teeth. He does have poor oral hygiene. He can hear my spoken words. He can see near objects. Neck: No meningismus. Neurologic: The patient is awake. The patient has a left facial paresis. He can move all of his extremities. He tells me his left hand is numb. His memory as regarding his medical history was slightly diminished. Integument: No rash noted. 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 He has also had a stroke, with a resulting left facial paresis and left hand numbness. MEDICAL DISEASES: Positive for hypertension, stroke, and cardiomyopathy. INFECTIOUS DISEASE HISTORY: Positive for pneumonia. Negative for UTI. FAMILY HISTORY: Positive for cancer and hypertension. SOCIAL HISTORY: The patient is . He is in correction now. 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 Patient says he stopped smoking cigarettes a [id number]-half ago. He occasionally does drink alcoholic beverages. He denies use of illicit drugs. Currently, the patient is in correction. ALLERGIES: He has no known allergies. HOME MEDICATIONS: No home medications can be identified. Thank you for the consult. cc: Ferdinand Han MD
[2017-03-17 04:37] LABS: MANUAL DIFF NEEDED? NO
[2017-03-17 04:46] LABS: BASO% 0.9 % (0.0-0.8); EOS# 0.11 X1000 (0.0-0.7); EOS% 1.2 % (0.0-10.0); HEMATOCRIT 35.9 % (42.0-52.0); HEMOGLOBIN 11.6 g/dL (14.0-18.0); IMM GRAN# 0.02 X1000 (0.0-0.04); IMM GRAN% 0.2 % (0.0-0.5); LYMPH# 1.53 X1000 (1.2-3.4); MCH 33.9 PG (27-31); MCHC 32.3 g/dL (33-37); MONO# 0.76 X1000 (0.11-0.59); MONO% 8.4 % (1.7-9.3); MPV 12.1 FL (7.4-10.4); NEUT% 72.3 % (42.2-75.2); PLT 319 X1000 (130-400); RBC 3.42 XMIL (4.7-6.1)
[2017-03-17 05:04] LABS: ALBUMIN 3.4 g/dL (3.5-5.0); CALCIUM 8.8 mg/dL (8.8-10.2); MAGNESIUM 1.7 mg/dL (1.5-2.7); POTASSIUM 4.9 mmol/L (3.5-5.1)
[2017-03-17 05:16] LABS: ALBUMIN 3.4 g/dL (3.5-5.0); ALKALINE PHOSPHATASE 206 U/L (32-122); DIRECT BILIRUBIN < 0.20 mg/dL (0.00-0.20); GOT 57 U/L (10-34); GPT 68 U/L (10-44); TOTAL BILIRUBIN 0.33 mg/dL (0.20-1.00); TOTAL PROTEIN 6.4 g/dL (6.3-8.3)
--- NOTE | 2017-03-17 05:39 | EKG Report ---
Test Performed on : 03/15/2017 02:19:38 AM Test Reason : CHF Exacerbation Blood Pressure : / mmHG Vent. Rate : 105 BPM Atrial Rate : 105 BPM P-R Int : 148 ms QRS Dur : 116 ms QT Int : 386 ms P-R-T Axes : 081 -49 164 degrees QTc Int : 510 ms Sinus tachycardia. Possible Left atrial enlargement Left axis deviation Left ventricular hypertrophy with QRS widening and repolarization abnormality Abnormal ECG No previous ECGs available Confirmed by Stuart Lewis MD ([id number]) on 03/17/2017 10:54:48 AM
--- NOTE | 2017-03-17 07:26 | Diag Imaging Result Doc PS360 ---
CHEST-PORTABLE - 03/17/2017 INDICATION: dyspnea TECHNIQUE: COMPARISON: 03/16/2017 FINDINGS: Stable retrocardiac consolidation and/or effusion. No new infiltrates or significant infiltrates otherwise. Stable borderline cardiomegaly. There are probably trace pleural effusions. IMPRESSION: No change from prior. Electronically signed by Monster Christiansen 03/17/2017 7:23 AM
[2017-03-17] MEDS: SODIUM CHLORIDE 0.9% INJ SCH (08:20)
[2017-03-17] MEDS: COREG PO SCH ×2 (08:20→20:15)
[2017-03-17] MEDS: ASPIRIN EC PO SCH (08:20)
[2017-03-17] MEDS: PROTONIX IV SCH ×2 (08:48→20:15)
[2017-03-17] MEDS ORDERED: ALBUMIN 25% IV ONE (11:14)
--- NOTE | 2017-03-17 11:35 | PROGRESS NOTE ---
DATE: 03/17/2017 SUBJECTIVE: Patient has no focal complaints except chest soreness. OBJECTIVE: Blood pressure 104/80, heart rate 109, respiratory 23, temperature 97.4 degrees. 100% on room air.Cardiovascular: Tachy. Pulmonary: Decreased at the bases. GI: Soft, nontender, nondistended. Bowel sounds are positive. LABORATORY DATA: White count 9.8, hemoglobin and hematocrit 11 and 35, platelets 319,000. Chemistries BUN and creatinine of 24 and 1.5. AST and ALT of 56 and 68. PROBLEM LIST: 1. Status post cardiac arrest related to antibiotic azithromycin which had been started empirically for pneumonia. Also could be a prolonged QT situation with his severe diminished EF and azithromycin. Obviously we are monitoring very closely. He does have significant CHF and we do not feel this was a primary cardiac event, but more reactive. 2. Pneumonia left lower lobe per CT scan. We will continue empiric antibiotics including Vanc and Zosyn at this point. A positive blood culture was 1/4, so, I think that was likely a contaminant. We are going to try to avoid any medications that may prolong QT obviously that he does not need clinically. 3. Shock, possibly cardiogenic versus septic. We will continue Lalit-Synephrine. We cannot really hydrate him because of his significant heart failure, so we will follow. 4. Congestive heart failure exacerbation. Continue monitor. Cardiology is following. 5. Elevated liver enzymes. I think we need to screen for viral hepatitis. He does have some risk factors for that and we will follow clinically. DISPOSITION: Pending his clinical course. cc: Kedar Elizabeth MD
[2017-03-17] MEDS: LOVENOX SUBQ SCH (12:21)
--- NOTE | 2017-03-17 13:28 | PROGRESS NOTE ---
DATE: 03/17/2017 SUBJECTIVE: Mr. Kenney reports continued issues with shortness of breath. PHYSICAL EXAMINATION: Vital signs: He is afebrile. His heart rate is 90s to low 100s. Blood pressure 115/78. His I's and O's are very slightly negative over the course of the hospitalization. General: No acute distress. Cardiovascular: He sounds to be in a regular rate and rhythm. He has no obvious murmurs. No S3. He has no lower extremity edema. His JVP appears to be elevated around 10 cm of water. Chest: Exam has some mild reduction in breath sounds in the bilateral bases. No increased work of breathing. Abdomen: Soft, nontender. PERTINENT DATA: His white count is 9. His hematocrit is 35.9, platelet count 319,000. His sodium is 140, potassium 4.9, BUN 24, creatinine 1.5. ASSESSMENT: 1. Congestive heart failure. 2. Pneumonia. PLAN: Patient appears to be volume overloaded based on the elevation in his JVP. We are not affecting a very good amount of diuresis. In addition, he is somewhat hypotensive. I will place him on a little bit of dobutamine and try to effect some more all volume removal. Unfortunately, the patient's ejection fraction is quite low, in the at 10 to 15% range. In addition, he has a dilated left ventricle. He is likely end-stage. cc: Stephon Bush MD
[2017-03-17] MEDS: DOBUTAMINE 500/D5W 500 MG/250 ML IV.SOLN IV SCH (14:08)
--- NOTE | 2017-03-17 16:02 | EKG Report ---
Test Performed on : 03/17/2017 11:42:34 AM Test Reason : cardiac arrest Blood Pressure : / mmHG Vent. Rate : 105 BPM Atrial Rate : 105 BPM P-R Int : 162 ms QRS Dur : 108 ms QT Int : 362 ms P-R-T Axes : 072 -37 162 degrees QTc Int : 478 ms Sinus tachycardia. Left axis deviation Incomplete left bundle branch block Nonspecific T wave abnormality Abnormal ECG When compared with ECG of 15-MAR-2017 02:19, No significant change was found Confirmed by Stuart Lewis MD ([id number]) on 03/19/2017 7:15:24 AM
[2017-03-17] MEDS ORDERED: EYE-STREAM SOLUTION BOTH EYES ONE (17:29)
--- NOTE | 2017-03-17 22:23 | PROGRESS NOTE ---
DATE: 03/17/2017 PRESENT ILLNESS: The patient is admitted the hospital with pneumonia. MEDICATIONS: He currently is receiving Zosyn and Zyvox. PHYSICAL EXAMINATION: Vital Signs: Temperature is 97.6 degrees, pulse 107, respirations 18, blood pressure 116/71. General: This is a fairly healthy-appearing middle-aged male. He is in no acute distress. Lungs: Clear to auscultation. Cardiovascular: Regular heart rate. Abdomen: Soft and nontender. Neurologic: He is alert. He can move his extremities. LAB AND X-RAY: Chest x-ray shows only a retrocardiac consolidation which is improved from yesterday. Sputum is growing normal dawood. Repeat blood cultures are pending. Liver function studies are getting better. There are decreasing. CBC shows a white count of 9000, hemoglobin 11.6, and platelet count 319,000. ASSESSMENT AND PLAN: Patient has pneumonia. I plan to continue his current antibiotics. He appears to be getting better. COMORBIDITIES: Include that he was a cigarette smoker. cc: Ferdinand Han MD
[2017-03-18] MEDS: NORCO-7.5 PO PRN ×4 (02:27→20:06)
[2017-03-18] MEDS: XOPENEX NEB INH SCH ×6 (03:25→23:15)
[2017-03-18] MEDS: ATROVENT NEB INH SCH ×6 (03:25→23:16)
[2017-03-18 04:35] LABS: MANUAL DIFF NEEDED? NO
[2017-03-18 04:37] LABS: BASO% 0.5 % (0.0-0.8); EOS# 0.14 X1000 (0.0-0.7); EOS% 1.8 % (0.0-10.0); HEMATOCRIT 33.1 % (42.0-52.0); HEMOGLOBIN 10.8 g/dL (14.0-18.0); LYMPH% 12.5 % (20.5-51.1); MCH 33.5 PG (27-31); MCHC 32.6 g/dL (33-37); MCV 102.8 FL (81-99); MONO# 0.44 X1000 (0.11-0.59); MONO% 5.5 % (1.7-9.3); NEUT% 79.7 % (42.2-75.2); PLT 295 X1000 (130-400); RBC 3.22 XMIL (4.7-6.1)
[2017-03-18 04:57] LABS: AGAP 12; ALBUMIN 3.3 g/dL (3.5-5.0); BUN 22 mg/dL (8-22); CALCIUM 8.8 mg/dL (8.8-10.2); CHLORIDE 100 mmol/L (98-107); COSMO 277; MAGNESIUM 1.7 mg/dL (1.5-2.7); POTASSIUM 4.6 mmol/L (3.5-5.1); SODIUM 136 mmol/L (136-145); TCO2 24 mmol/L (25-35)
[2017-03-18 05:07] LABS: ALBUMIN 3.3 g/dL (3.5-5.0); ALKALINE PHOSPHATASE 182 U/L (32-122); DIRECT BILIRUBIN < 0.20 mg/dL (0.00-0.20); GOT 145 U/L (10-34); GPT 116 U/L (10-44); TOTAL BILIRUBIN 0.22 mg/dL (0.20-1.00); TOTAL PROTEIN 6.5 g/dL (6.3-8.3)
[2017-03-18] MEDS: ZOSYN 3.375 GM/NS 3.375 GM/50 ML IVPB IV SCH ×5 (05:45→23:54)
--- NOTE | 2017-03-18 06:04 | Diag Imaging Result Doc PS360 ---
EXAM: CHEST-PORTABLE HISTORY: dyspnea TECHNIQUE: COMPARISON: 03/17/2017. FINDINGS: The heart remains enlarged. There are infiltrates or atelectasis in the left base. Questionable tiny effusions. The vessels are not distended. Tiny infiltrate or atelectasis in the right base. IMPRESSION: Mild interval worsening. Electronically signed by Luis E Villalta 03/18/2017 6:02 AM
[2017-03-18] MEDS: COREG PO SCH ×2 (08:22→20:06)
[2017-03-18] MEDS: PROTONIX IV SCH ×2 (08:22→20:07)
[2017-03-18] MEDS: ASPIRIN EC PO SCH (08:22)
[2017-03-18] MEDS: SODIUM CHLORIDE 0.9% INJ SCH (08:22)
--- NOTE | 2017-03-18 11:48 | PROGRESS NOTE ---
DATE: 03/18/2017 SUBJECTIVE: Patient complaining of chest discomfort. OBJECTIVE: Vital signs: Blood pressure 92/61, heart rate 100, respiratory rate 20, temperature 98.6 degrees, 97 on room air. Cardiovascular: Regular rate and rhythm. Soft S1, S2. Pulmonary: Bilateral breath sounds. Decreased at the bases. GI: Soft, nontender, nondistended. Bowel sounds are positive. LABORATORY DATA: BUN and creatinine are stable 22 and 1.2. AST and ALT of 145 and 116 respectively. BNP of 2,862. Chest x-ray shows a little bit worsening in effusions and atelectasis. PROBLEM LIST: 1. Pneumonia. He is currently on antibiotics. He had a severe reaction to azithromycin. Currently he is on Zosyn and seems to be stable on that. ID is following. 2. Status post cardiac arrest. We will continue to monitor. 3. Cardiogenic shock presumably. He is being switched dobutamine to help improve cardiac function and hopefully get him off his pressors, which has happened. 4. Elevated liver enzymes. At this point, I think he probably has some passive venous congestion. I am going to pursue a right upper quadrant, although his CT scan did not show any significant liver pathology and his viral hepatitis screen is stable. We will monitor on dobutamine because he may need pressor institution of his blood pressure does not improve. If he is stable consider transfer to step-down tomorrow. cc: Kedar Elizabeth MD
[2017-03-18] MEDS: ZYVOX PO SCH ×2 (12:08→20:06)
[2017-03-18] MEDS: LOVENOX SUBQ SCH (12:57)
[2017-03-18] MEDS: DOBUTAMINE 500/D5W 500 MG/250 ML IV.SOLN IV SCH (13:10)
[2017-03-18] MEDS ORDERED: LASIX IV ONE (16:56)
--- NOTE | 2017-03-18 17:21 | PROGRESS NOTE ---
DATE: 03/18/2017 SUBJECTIVE: Mr. Kenney reports he is feeling a little bit better today. I's and O's are relatively matched. PHYSICAL: He is afebrile. Heart rate 97, blood pressure is 136/96. General: No acute distress. Cardiovascular: He is in a regular rate and rhythm. He has no obvious murmurs. He has no S3. No lower extremity edema. His JVP appears to be slightly elevated. Chest: Exam is clear to auscultation bilaterally. No increased work of breathing. Abdomen: Soft, nontender. No obvious organomegaly. PERTINENT DATA: White count 7.9, hematocrit is 33, platelet count is 295,000. His sodium is 136, potassium 4.6. His BUN is 22, creatinine [place] [address]. ASSESSMENT: Systolic heart failure. PLAN: We will continue the dobutamine today. I will give him a dose of 20 mg IV Lasix. Hopefully we can turn dobutamine off tomorrow and get him transferred out to a potential [facility]IC bed. cc: Stephon Bush MD
--- NOTE | 2017-03-18 19:00 | PROGRESS NOTE ---
DATE: 03/18/2017 PRESENT ILLNESS: The patient was admitted to the hospital with pneumonia. MEDICATIONS: This is day 2 of treatment with Zyvox and Zosyn. PHYSICAL EXAMINATION: Vital Signs: The temperature is 97.1 degrees, pulse 97, respirations 21, blood pressure 136/96. General: This is a somewhat healthy-appearing middle-aged male. He does not appear to be in any acute distress. Lungs: Clear to auscultation. Cardiovascular: Heart rate is regular. Abdomen: Soft and nontender. LAB AND X-RAY: Chest x-ray shows bilateral atelectasis versus infiltrate with small effusions. The patient's CBC shows a white count of 7970, hemoglobin 10.8, and platelet count 295,000. Creatinine is 1.2. GFR is greater than 60. The patient's AST is 145. Sputum is growing a normal dawood. Blood cultures are negative. ASSESSMENT AND PLAN: Patient has pneumonia. I plan to continue his current antibiotics consisting of Zyvox and Zosyn. COMORBIDITIES: In this patient the main one is cigarette smoking. cc: Ferdinand Han MD
[2017-03-19] MEDS: ATIVAN IV PRN ×2 (01:33→20:28)
[2017-03-19] MEDS: ATROVENT NEB INH SCH ×5 (03:52→23:18)
[2017-03-19] MEDS: XOPENEX NEB INH SCH ×6 (03:53→23:18)
[2017-03-19 05:24] LABS: MANUAL DIFF NEEDED? NO
[2017-03-19 05:26] LABS: BASO% 0.5 % (0.0-0.8); EOS# 0.21 X1000 (0.0-0.7); EOS% 2.4 % (0.0-10.0); HEMATOCRIT 37.1 % (42.0-52.0); HEMOGLOBIN 12.4 g/dL (14.0-18.0); LYMPH# 1.01 X1000 (1.2-3.4); LYMPH% 11.8 % (20.5-51.1); MCH 34.1 PG (27-31); MCHC 33.4 g/dL (33-37); MCV 101.9 FL (81-99); MONO# 0.52 X1000 (0.11-0.59); MONO% 6.1 % (1.7-9.3); NEUT% 79.2 % (42.2-75.2); PLT 346 X1000 (130-400); RBC 3.64 XMIL (4.7-6.1)
[2017-03-19 05:48] LABS: ALBUMIN 3.5 g/dL (3.5-5.0); MAGNESIUM 1.8 mg/dL (1.5-2.7); POTASSIUM 4.6 mmol/L (3.5-5.1)
[2017-03-19 05:50] LABS: ALBUMIN 3.5 g/dL (3.5-5.0); ALKALINE PHOSPHATASE 175 U/L (32-122); DIRECT BILIRUBIN < 0.20 mg/dL (0.00-0.20); GOT 78 U/L (10-34); GPT 100 U/L (10-44); TOTAL BILIRUBIN 0.36 mg/dL (0.20-1.00); TOTAL PROTEIN 7.1 g/dL (6.3-8.3)
[2017-03-19] MEDS: ZOSYN 3.375 GM/NS 3.375 GM/50 ML IVPB IV SCH ×4 (05:59→23:51)
[2017-03-19] MEDS ORDERED: ATROVENT NEB ONE (07:21)
[2017-03-19] MEDS: COREG PO SCH ×2 (08:02→20:29)
[2017-03-19] MEDS: PROTONIX IV SCH ×2 (08:02→20:29)
[2017-03-19] MEDS: ASPIRIN EC PO SCH (08:02)
[2017-03-19] MEDS: ZYVOX PO SCH ×2 (08:02→20:29)
[2017-03-19] MEDS: SODIUM CHLORIDE 0.9% INJ SCH (08:03)
--- NOTE | 2017-03-19 08:26 | Diag Imaging Result Doc PS360 ---
EXAM: US ABDOMEN-COMPLETE INDICATION: elevated liver enzymes COMPARISON: Renal ultrasound dated 03/16/2017 FINDINGS: The gallbladder appears normal with no stones, wall thickening, or pericholecystic fluid. The common bile duct is normal in diameter. Sonographic Bautista's sign was reported to be negative. The liver is grossly unremarkable. The distal aorta is obscured. The remainder of the aorta as well as the IVC are grossly unremarkable. The visualized pancreas and spleen are grossly unremarkable. Like the previous renal ultrasound, there is trace fluid adjacent to the upper pole of the right kidney but it appears less than the previous study. The kidneys are essentially stable, otherwise. Incidentally, pleural fluid is seen on the right. IMPRESSION: 1.Trace fluid adjacent to the upper pole of the right kidney that is slightly less than the previous study. 2.Incidental right pleural effusion. Electronically signed by Macario Hernandez 03/19/2017 8:24 AM
[2017-03-19] MEDS: NORCO-7.5 PO PRN ×2 (08:30→14:27)
[2017-03-19] MEDS ORDERED: LASIX IV ONE (09:27)
[2017-03-19 09:50] LABS: HEPATITIS PROFILE ACUTE SEE COMMENTS
--- NOTE | 2017-03-19 09:57 | PROGRESS NOTE ---
DATE: 03/19/2017 SUBJECTIVE: Mr. Kenney thinks that he feels a little bit better today. He reports his breathing is somewhat better. PHYSICAL EXAMINATION: He is afebrile presently. Heart rate is in the 90s to low 100s. Blood pressure 117/86. His I's and O's are negative around 800-900 mL yesterday. For the course of the hospitalization, he is negative around 1200 mL. General: No acute distress. Cardiovascular: Regular rate and rhythm. Chest: Reduced breath sounds in the bilateral bases. Poor inspiratory effort. Abdomen is soft, nontender, nondistended. No obvious organomegaly. Skin exam is warm and dry throughout. PERTINENT DATA: Sodium is 140, potassium 4.6. BUN 19, creatinine 1.3. His proBNP is 15,498 which is down from 20,862. His albumin level was 3.5. ASSESSMENT: Systolic heart failure. PLAN: I will give a dose of 40 mg IV Lasix and continue him on dobutamine presently. I have reduced his fluid intake to 1500 mL a day. cc: Stephon Bush MD
--- NOTE | 2017-03-19 11:06 | PROGRESS NOTE ---
DATE: 03/19/2017 SUBJECTIVE: Today, Mr. Kenney refers to be doing a whole lot better. Denies any complaints. OBJECTIVE: Vital signs: Blood pressure is 117/86, pulse of 95, respirations 19 , temperature 97.8 degrees. General: Mr. Kenney is a 51-year-old male. He is in bed. He did not seem to be in any distress. HEENT: Mucosa is pink and moist. Anicteric. Acyanotic. Neck: Supple. Chest: Air entry is bilaterally reduced, with slightly prolonged expiration phase. I did not appreciate any crepitations. Cardiovascular: Regular rate and rhythm. No murmurs. Abdomen: Soft, nontender. Extremities: No pedal edema. Distal pulses are slightly reduced. The left side is about 2+ and the right side is about 1+. Central Nervous System: Patient is alert and oriented. Musculoskeletal: There are some mild erythematous changes over the right forearm. It is slightly warm at the site of a previous IV line. LABORATORIES: WBC is 8.58, hemoglobin is 12.4, platelet count of 346,000. Sodium is 140, potassium is 4.6, chloride 98, bicarbonate is 26. Creatinine went up slightly to 1.3. AST is 78, ALT is 100, alkaline phosphatase is 179. proBNP is 15,498. Hepatitis panel is completely negative. IMAGING: Review of a CT scan of the abdomen and pelvis, which was done on 03/16, shows pleural effusion, ascites, and anasarca, left lower lobe and probably right lower lobe pneumonia, and COPD changes. Abdominal ultrasound, which was done this morning, shows trace fluid adjacent to upper pole of the right kidney. There is incidental right pleural effusion. CURRENT MEDICATIONS: 1. Aspirin 325 daily. 2. Carvedilol 6.25 b.i.d. 3. Dobutamine drip. 4. Lovenox 30 subcutaneous daily. 5. Atrovent inhaler and Xopenex inhaler. 6. Zyvox 600 q.12. 7. Ativan. 8. Protonix 40 mg IV q.12. 9. Phenylephrine was started, but this has been discontinued. 10. Zosyn 3.375 g q.4 hours. ASSESSMENT: 1. Bilateral pneumonia. Patient is currently on IV antibiotics and is being followed by Dr. Han. 2. Status post cardiac arrest. This was in the setting of what seems to have been a severe reaction to azithromycin, questionable if this was anaphylactic shock. 3. Severe congestive heart failure. Ejection fraction is 10% to 15%. I think with this level of heart failure, patient will need some ischemic workup; however, he said he normally follows up with Dr. Isael Turner in [place], and assume they might have done a lot of studies. The cardiologists are following him in that regard, so we would defer any recommendations to them. 4. Transaminitis, possibly due to congestive hepatopathy versus ischemic liver. The numbers seem to be in a downward trend. Will continue to follow up on that. 5. Anasarca. Patient does have pleural effusions and some ascites, does not have any remarkable peripheral edema, but I think this is secondary to the congestive heart failure. He is getting diuretics and some good heart medicine, and will follow up with Cardiology. 6. Chronic obstructive pulmonary disease, not in acute exacerbation. 7. Mild thrombophlebitis on the right forearm. We will use compressors and also continue with the antibiotics. I understand the patient has now been left alone from the detention. The officers have left him and he is now on his own. In general, I think Mr. Kenney is relatively stable. He has a very bad EF; however, clinically, he seems pretty stable. We will continue with the current antibiotics. Will be waiting for further recommendations from Cardiology. I think maybe we need another 24 hours. The dobutamine can be turned off. He seems to be perfusing great and his vitals seem to be stable, so I think we can discontinue that and start him on some p.o. digoxin or something; however, will defer to the Cardiology team. cc: Tim Santiago MD MTDD
[2017-03-19] MEDS: LOVENOX SUBQ SCH (12:14)
[2017-03-19] MEDS: LANOXIN PO SCH (13:44)
[2017-03-19] MEDS: DOBUTAMINE 500/D5W 500 MG/250 ML IV.SOLN IV SCH (13:52)
[2017-03-19] MEDS: TEARISOL OPH SOLUTION BOTH EYES SCH ×2 (18:15→20:29)
--- NOTE | 2017-03-19 18:36 | PROGRESS NOTE ---
DATE: 03/19/2017 PRESENT ILLNESS: The patient has pneumonia. MEDICATIONS: This is the 3rd day of treatment with a combination of Zosyn and Zyvox. PHYSICAL EXAMINATION: Vital Signs: Temperature is 97.2 degrees, pulse 89, respirations 19, blood pressure 99/72. General: This is a fairly healthy-appearing, middle-aged male. He is in no acute distress. Chest: There is increased AP diameter. Lungs: Clear to auscultation. Cardiovascular: Regular heart rate. Abdomen: Soft and nontender. Neurologic: Patient is alert. Extremities: He can move his extremities. LABORATORY STUDIES AND X-RAYS: Patient's CBC today shows white count of 8580, hemoglobin 12.4, platelet count 346,000. Creatinine is 1.3. GFR is 58. Liver function studies are improving. Abdominal ultrasound showed decrease fluid on the right kidney, and a small right pleural effusion. ASSESSMENT AND PLAN: Patient has pneumonia. My plan is to continue Zyvox and Zosyn. This is day #3 of treatment with those agents. COMORBIDITIES: 1. He has a history of cigarette smoking. 2. COPD, secondary to cigarette smoking. cc: Ferdinand Han MD
[2017-03-20] MEDS: ATROVENT NEB INH SCH ×6 (04:09→19:20)
[2017-03-20] MEDS: XOPENEX NEB INH SCH ×5 (04:09→19:20)
[2017-03-20 05:08] LABS: MANUAL DIFF NEEDED? NO
[2017-03-20 05:25] LABS: BASO% 0.2 % (0.0-0.8); EOS# 0.25 X1000 (0.0-0.7); HEMATOCRIT 38.2 % (42.0-52.0); HEMOGLOBIN 12.8 g/dL (14.0-18.0); IMM GRAN# 0.02 X1000 (0.0-0.04); IMM GRAN% 0.2 % (0.0-0.5); LYMPH# 1.01 X1000 (1.2-3.4); LYMPH% 12.1 % (20.5-51.1); MCH 33.6 PG (27-31); MCHC 33.5 g/dL (33-37); MCV 100.3 FL (81-99); MONO# 0.71 X1000 (0.11-0.59); MONO% 8.5 % (1.7-9.3); MPV 11.5 FL (7.4-10.4); PLT 378 X1000 (130-400); RBC 3.81 XMIL (4.7-6.1)
[2017-03-20 05:44] LABS: AGAP 12; ALBUMIN 3.5 g/dL (3.5-5.0); BUN 20 mg/dL (8-22); CALCIUM 9.1 mg/dL (8.8-10.2); CHLORIDE 100 mmol/L (98-107); COSMO 283; MAGNESIUM 1.8 mg/dL (1.5-2.7); POTASSIUM 4.6 mmol/L (3.5-5.1); SODIUM 141 mmol/L (136-145); TCO2 29 mmol/L (25-35)
[2017-03-20 05:50] LABS: ALBUMIN 3.3 g/dL (3.5-5.0); ALKALINE PHOSPHATASE 145 U/L (32-122); DIRECT BILIRUBIN < 0.20 mg/dL (0.00-0.20); GOT 56 U/L (10-34); GPT 83 U/L (10-44); TOTAL PROTEIN 6.4 g/dL (6.3-8.3)
[2017-03-20] MEDS: NORCO-7.5 PO PRN ×2 (06:55→11:56)
[2017-03-20] MEDS: ZOSYN 3.375 GM/NS 3.375 GM/50 ML IVPB IV SCH ×4 (08:07→23:33)
[2017-03-20] MEDS: PROTONIX IV SCH (09:04)
[2017-03-20] MEDS: SODIUM CHLORIDE 0.9% INJ SCH (09:04)
[2017-03-20] MEDS: ZYVOX PO SCH ×2 (09:05→21:00)
[2017-03-20] MEDS: ASPIRIN EC PO SCH (09:05)
[2017-03-20] MEDS: TEARISOL OPH SOLUTION BOTH EYES SCH ×4 (09:05→21:00)
[2017-03-20] MEDS: LANOXIN PO SCH (09:05)
[2017-03-20] MEDS: COREG PO SCH ×2 (09:05→21:00)
--- NOTE | 2017-03-20 10:50 | PROGRESS NOTE ---
DATE: 03/20/2017 SUBJECTIVE: Today Mr. Kenney refers to be doing a lot better. He feels his breathing is significantly improving. He still continues to have some residual cough. OBJECTIVE: Vital signs: Blood pressure is 109/87, pulse of 97, respirations 19 , temperature is 98.5 degrees. General: Mr. Kenney is a 51-year-old male. He was in bed. He did not seem to be in any unremarkable distress. HEENT: Mucosa is pink. Anicteric. Chest: Air entry is bilaterally reduced. There is a prolonged expiratory phase and there is some dullness to percussion to posterior lung luevano with bilateral crepitations. Cardiovascular : Regular rate and rhythm. I did not appreciate any murmurs. Abdomen: Soft. Extremities: No pedal edema. Distal pulses are reduced. The left side is about 2+ and the right is about 1+ . [employer]: Patient is alert and oriented x4. There is no focal neurological deficit. Skin: There is mild erythematous changes over the right forearm medially which seems to be improving. LABORATORY DATA: WBC is 8.32, hemoglobin is 12.4, platelet count of 337,000. Chemistry is reviewed and completely normal. AST is down to 56, ALT is down to 83, alkaline phosphatase is down to 145. ProBNP is also down to 7,313. An ultrasound of the abdomen which was done yesterday shows trace fluid adjacent to the superior pole of the right kidney, incidental right pleural effusion. ASSESSMENT: 1. Bilateral pneumonia L>R. Patient seems to be improving. 2. Status post cardiac arrest. 3. Severe reaction to azithromycin. 4. Severe congestive heart failure (systolic with an ejection fraction of 10-15) . I spoke extensively with Dr. Bush yesterday and apparently Mr. Kenney had a left heart catheterization sometime in 2014. 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 5. Transaminitis, improving. We think this is related to congestive hepatopathy versus ischemic liver injury. 6. Pulmonary edema. We will continue with the management from a cardiology standpoint. 7. Chronic obstructive pulmonary disease. Currently not in exacerbation. 8. Mild thrombophlebitis in the right forearm. This is improving. 9. Constipation. Start on Miralax. PLAN: So in general I think Mr. Kenney is doing a whole lot better. Vitals are stable. Blood pressure is a while lot better. We are pending cardiology to evaluate him today. I think today we might be able to turn off the dobutamine drip. The patient has been started on digoxin and he is also on carvedilol and antibiotics. Hopefully we might be able to transfer the patient to the floor later on today. cc: Tim Santiago MD MTDD
[2017-03-20] MEDS: LOVENOX SUBQ SCH (11:49)
[2017-03-20] MEDS: DOBUTAMINE 500/D5W 500 MG/250 ML IV.SOLN IV SCH (13:02)
[2017-03-20] MEDS ORDERED: LASIX IV ONE (13:45)
--- NOTE | 2017-03-20 13:59 | PROGRESS NOTE ---
DATE: 03/20/2017 SUBJECTIVE: Mr. Kenney reports he is doing somewhat better today. PHYSICAL EXAMINATION: He is afebrile. His heart rate is in the 80s to low 100s. Blood pressure presently is 95/58 and has been in the 90s to the low 100s predominantly. His I's and I's for the course of the hospitalization has been negative 1.7 L. Generally he is in no acute distress. Cardiovascular: He sounds to be in a regular rate and rhythm. He has no obvious murmurs. He has no S3. He has no lower extremity edema. Chest Exam: Exam sounds much clearer. No increased work of breathing. Abdomen: Soft, nontender. PERTINENT DATA: His proBNP is down to 7313. The peak during this hospitalization was 20,000. His sodium is 141, potassium 4.6. BUN 20, creatinine 1.2. ASSESSMENT: Systolic heart failure. PLAN: We will give him another 40 mg of IV Lasix. I will turn off his dobutamine at 3:30 this afternoon. If he is stable for the next hour he may be transferred out to the floor with telemetry. cc: Stephon Bush MD
[2017-03-20] MEDS: TYLENOL PO PRN (17:57)
[2017-03-20] MEDS: MIRALAX PO SCH (18:02)
[2017-03-20] MEDS: ATIVAN IV PRN (21:07)
[2017-03-21] MEDS: ZOSYN 3.375 GM/NS 3.375 GM/50 ML IVPB IV SCH (05:17)
[2017-03-21] MEDS: ATROVENT NEB INH SCH ×3 (05:44→11:20)
[2017-03-21] MEDS: XOPENEX NEB INH SCH ×4 (05:44→11:20)
[2017-03-21] MEDS: TYLENOL PO PRN (07:25)
[2017-03-21 07:34] VITALS: BP 123/82
[2017-03-21 07:35] LABS: CALCIUM 9.6 mg/dL (8.8-10.2); POTASSIUM 4.7 mmol/L (3.5-5.1)
[2017-03-21] MEDS: COREG PO SCH (08:33)
[2017-03-21] MEDS: LANOXIN PO SCH (08:33)
[2017-03-21] MEDS: ASPIRIN EC PO SCH (08:33)
[2017-03-21] MEDS: ZYVOX PO SCH (08:33)
[2017-03-21] MEDS: MIRALAX PO SCH (08:33)
[2017-03-21 09:17] LABS: HEMATOCRIT 41.1 % (42.0-52.0); HEMOGLOBIN 13.7 g/dL (14.0-18.0); MCH 33.8 PG (27-31); MCHC 33.3 g/dL (33-37); MCV 101.5 FL (81-99); MPV 11.7 FL (7.4-10.4); RBC 4.05 XMIL (4.7-6.1)
[2017-03-21 09:33] LABS: ALKALINE PHOSPHATASE 139 U/L (32-122); GOT 71 U/L (10-34); GPT 81 U/L (10-44); TOTAL BILIRUBIN 0.26 mg/dL (0.20-1.00); TOTAL PROTEIN 7.9 g/dL (6.3-8.3)
[2017-03-21 09:36] LABS: DIRECT BILIRUBIN < 0.10 mg/dL (0.00-0.20)
[2017-03-21] MEDS: LOVENOX SUBQ SCH (11:10)
[2017-03-21] MEDS: TEARISOL OPH SOLUTION BOTH EYES SCH (11:11)
--- NOTE | 2017-03-21 12:06 | PROGRESS NOTE ---
DATE: 03/21/2017 PRESENT ILLNESS: The patient is being treated for pneumonia. MEDICATIONS: This is the 4th day of treatment with Zosyn and Zyvox, which today was changed to Augmentin and Zyvox. PHYSICAL EXAMINATION: Vital Signs: Temperature is 99 degrees, pulse 84, respirations 16, blood pressure 120/70. General: This is a chronically ill-appearing, middle-aged male. He is in no acute distress. Ears, Nose, Throat: The patient is missing many teeth. He has poor oral hygiene. Lungs: Clear to auscultation. Cardiovascular: Regular heart rate. Chest: Increased AP diameter. LABORATORY AND X-RAY: There is no new x-ray. The CBC for today shows a white count of 10,390, hemoglobin 13.7, and platelet count 404,000. Creatinine is 1.3. The GFR is 58. ASSESSMENT AND PLAN: The patient has pneumonia. He is being discharged today on a combination of doxycycline 100 mg p.o. every 12 hours and Augmentin 875 mg p.o. every 12 hours, both for 2 weeks. I have requested that the patient see me in the office in 2 weeks for a return appointment, at which time I will examine him and also repeat his chest x-ray. COMORBIDITIES: Include cigarette smoking and COPD. cc: Ferdinand Han MD
--- NOTE | 2017-03-21 13:08 | PROGRESS NOTE ---
DATE: 03/21/2017 SUBJECTIVE: Mr. Kenney reports he feels better. He has no orthopnea. He is lying flat in the bed upon my arrival. PHYSICAL EXAMINATION: Vital Signs: He is afebrile. His heart rate is in the 70s to low 100s. His blood pressure is 123/82. General: In no acute distress. Cardiovascular: He has regular rate and rhythm. He has no murmurs. No S3. No lower extremity edema. Chest: Clear bilaterally. No increased work of breathing. Abdomen: Soft, nontender. PERTINENT DATA: His sodium 137, potassium 4.7. BUN 22, creatinine 1.3. His proBNP yesterday was 7313. ASSESSMENT: Systolic heart failure. PLAN: I believe he is appropriate for discharge at this point, given his drop in his proBNP and relative improvement in symptoms. I agree with the addition of lisinopril to his regimen. In addition, digoxin was added. I believe he is suitable for discharge. cc: Stephon Bush MD
--- NOTE | 2017-03-21 14:09 | DISCHARGE SUMMARY ---
ADMISSION DATE: 03/14/2017 DISCHARGE DATE: 03/21/2017 CONSULTATIONS: 1. Dr. Stephon Bush with cardiology. 2. Dr. Ferdinand Han with infectious disease. PERTINENT PROCEDURES: 1. Chest, abdomen and pelvis CT showed pleural effusions, ascites and scar, left lower and probable right lower lobe pneumonia, mediastinal adenopathy, chronic obstructive pulmonary disease. 2. Echocardiogram showed an EF of 10% to 15% significant for global hypokinesis. 3. Abdominal ultrasound showed trace fluid adjacent to the upper pole of the right kidney that is slightly less than previous study. 4. Renal ultrasound showed no evidence of obstructive uropathy. Possibility of medical renal disease cannot be excluded. DISCHARGE DIAGNOSES: 1. Bilateral pneumonia, left greater than right. The patient improving. Will go on oral antibiotics. 2. Status post cardiac arrest. Followed by cardiology. Stable. 3. Severe reaction to azithromycin, resolved. 4. Severe congestive heart failure systolic with an ejection fraction of 10% to 15%, again followed by cardiology. He did have a left heart catheterization in 2014; it did not show any coronary artery disease. So, I think this is all related to dilated cardiomyopathy secondary to toxins, including alcohol. 5. Transaminitis, improving, related to congestive hepatopathy versus ischemic liver injury. 6. Pulmonary edema, again improved followed by cardiology. 7. Chronic obstructive pulmonary disease not in exacerbation. 8. Mild thrombophlebitis in the right arm, improved. 9. Constipation. The patient will continue on a bowel regimen. Improved. HOSPITAL COURSE: Briefly, Mr. Kenney is a 51-year-old male, who presented to the ED in custody of [facility] with complaints of not feeling well for 2 weeks. Symptoms of shortness of breath, fever, chills, productive cough, dark green sputum, right rib pain. Denied dizziness, lightheadedness or chest pain. His last bowel movement was a few days ago. Did report some melena, as well as soreness in the abdominal area from coughing. 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 He reports he does chewing tobacco and drinks 1 pint of vodka daily; he has done so since his early 20s. His last drink was approximately 6 days ago when he was placed in custody. In the ED, he had a chest x-ray that showed right upper lobe and left lower lobe pneumonia, as well as COPD, elevated white count, lactate of 2.5, proBNP of 13,000. The patient was admitted for pneumonia, started on IV antibiotics as well as bronchodilators and aggressive pulmonary toilet and supplemental O2. He was started on IV Lasix, as well as continued on his lisinopril and beta jackie, with a cardiology consult, strict Is and Os and daily weights. The patient had a severe reaction to azithromycin that was discontinued. Dr. Ferdinand Han was brought on board. The patient was started on Zosyn, as well as Zyvox p.o. Mr. Kenney was also on a dobutamine drip. He was adequately diuresed by cardiology, as well as fluid intake reduction of 1500 mL per day. Clinically Mr. Kenney has improved. His vital signs were stable. Blood pressure is remaining stable. He was able to come off his dobutamine drip and has been started on digoxin. He was transferred from the [facility] to the regular floor. Dr. Santiago did discuss at length with Dr. Bush about the patient's condition. 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 Dr. Santiago has assessed Mr. Kenney today and feels that he is appropriate for discharge. VITAL SIGNS: Temperature is 98.4 degrees, heart rate 106, respirations 19, blood pressure 123/82, O2 is 98% on room air. DISCHARGE DIET: Healthy heart with Ensure. DISCHARGE MEDICATIONS: 1. Augmentin 875 mg p.o. b.i.d. 2. Aspirin 325 mg p.o. daily. 3. Coreg 6.25 mg p.o. b.i.d. 4. Digoxin 125 mcg p.o. daily. 5. Doxycycline 100 mg p.o. q. 12 hours. 6. Lasix 20 mg p.o. daily. 7. Zyvox 600 mg p.o. q. 12 hours. 8. Prinivil 2.5 mg p.o. daily. 9. Aldactone 12.5 mg p.o. daily. FOLLOWUP: The patient is being discharged home with self care. He will continue to follow up with Dr. Stephon Bush as indicated in 1 week with a BMP, and Dr. Ferdinand Han in 2 weeks. The patient can return to the ED for any worsening of symptoms. DISCHARGE TIME: 30 minutes. Dictated by CHAPIN Hanson for Tim Santiago MD cc: Tim Santiago MD
[2017-03-21] MEDS ORDERED: AUGMENTIN PO SCH (21:00)
[2017-03-22] MEDS ORDERED: ALDACTONE PO SCH (09:00)
[2017-03-22] MEDS ORDERED: LASIX PO SCH (09:00)
[2017-03-22] MEDS ORDERED: PRINIVIL PO SCH (09:00)
== END 2017-03-21 14:38 | disposition home or self-care (01) ==
LOC: ED 21:09 → 3S 22:58 → SUATTDRO 22:58 → 3S 03-15 00:33 → ICU 03-16 01:08 → 3N 03-20 20:04
PROVIDERS: ATTEND Internal Medicine